=== PATIENT | male | born 1985 | race Caucasian/White ===

== ENCOUNTER 2023-01-04 13:08 | Outpatient (RCR) | payer BC, SELFPAY ==
[2022-05-04 21:02] LABS: Basophils Absolute Auto 0.04 K/uL (0.00-0.30); Basophils Percent Auto 0.7 % (0.0-3.0); Eosinophils Absolute Auto 0.15 K/uL (0.00-0.50); Eosinophils Percent Auto 2.5 % (0.0-7.0); Hemoglobin* 13.8 gm/dL (13.5-17.5); Immature Granulocytes Abs Auto 0.01 K/uL (0.00-0.30); Lymphocytes Absolute Auto 1.68 K/uL (0.90-2.90); Lymphocytes Percent Auto 27.8 % (20-44); Mean Corpuscular HGB Conc 34 gm/dL (32-36); Mean Corpuscular Hemoglobin 32 pg (26-34); Mean Corpuscular Volume 95 fL (80-100); Monocytes Percent Auto 4.8 % (0.0-11.0); Neutrophils Absolute Auto 3.87 K/uL (1.7-7.0); Platelet Count* 190 K/uL (140-440); RDW Coefficient of Variation % 14.2 % (11.5-15.5); Red Blood Count 4.33 m/uL (4.30-5.90); White Blood Count* 6.04 K/uL (4.50-11.00)
[2022-05-04 21:08] LABS: Slide Review Reflex No
[2022-05-10 22:06] LABS: Albumin* 4.7 g/dL (3.3-5.0); Chloride* 101 mmol/L (96-114); Potassium* 3.7 mmol/L (3.6-5.1); Sodium* 136 mmol/L (135-149)
[2022-05-10 22:08] LABS: Aspartate Amino Transferase* 24 U/L (12-35); Bilirubin Total* 0.9 mg/dL (0.1-1.5); Carbon Dioxide* 24 mmol/L (20-32); Estimated Glomerular Filt Rate 101 ml/min
[2022-05-10 22:09] LABS: Alanine Aminotransferase* 19 U/L (4-50); Alkaline Phosphatase* 57 U/L (40-150); Blood Urea Nitrogen* 19 mg/dL (5-24); Calcium* 9.2 mg/dL (8.4-10.6); Glucose* 130 mg/dL (60-115); Total Protein* 7.3 g/dL (6.0-8.3)
[2022-05-13 08:14] LABS: BCRABL1 Intl Scale (Percent) 0.0229 %
--- NOTE | 2022-07-18 14:45 | ONC.NURNOTE ---
Raul did not order his sprycel in time and has taken his last dose today his prescription has no refills RX faxed to [facility] in [place] and she signed and faxed in new RX today Patient was called and he said [facility] has called and scheduled delivery for tomorrow
[2022-08-11 13:14] LABS: Basophils Absolute Auto 0.02 K/uL (0.00-0.30); Basophils Percent Auto 0.4 % (0.0-3.0); Eosinophils Absolute Auto 0.25 K/uL (0.00-0.50); Eosinophils Percent Auto 4.9 % (0.0-7.0); Hematocrit 43.3 % (37.0-53.0); Hemoglobin* 14.5 gm/dL (13.5-17.5); Immature Granulocytes Abs Auto 0.01 K/uL (0.00-0.30); Immature Granulocytes Pct Auto 0.2 %; Lymphocytes Absolute Auto 1.18 K/uL (0.90-2.90); Mean Corpuscular HGB Conc 34 gm/dL (32-36); Mean Corpuscular Hemoglobin 32 pg (26-34); Mean Corpuscular Volume 95 fL (80-100); Monocytes Percent Auto 5.4 % (0.0-11.0); Neutrophils Percent Auto 66.1 % (42.0-72.0); Platelet Count* 192 K/uL (140-440); RDW Coefficient of Variation % 14.1 % (11.5-15.5); Red Blood Count 4.57 m/uL (4.30-5.90); White Blood Count* 5.14 K/uL (4.50-11.00)
[2022-08-11 13:23] LABS: Albumin* 4.9 g/dL (3.3-5.0); Chloride* 102 mmol/L (96-114)
[2022-08-11 13:24] LABS: Potassium* 4.6 mmol/L (3.6-5.1); Sodium* 139 mmol/L (135-149)
[2022-08-11 13:26] LABS: Alkaline Phosphatase* 42 U/L (40-150); Aspartate Amino Transferase* 25 U/L (12-35); Bilirubin Total* 1.4 mg/dL (0.1-1.5); Blood Urea Nitrogen* 20 mg/dL (5-24); Carbon Dioxide* 31 mmol/L (20-32); Creatinine* 0.9 mg/dL (0.5-1.5); Estimated Glomerular Filt Rate 114 ml/min; Total Protein* 7.2 g/dL (6.0-8.3)
[2022-08-11 13:27] LABS: Alanine Aminotransferase* 19 U/L (4-50); Calcium* 9.1 mg/dL (8.4-10.6); Glucose* 82 mg/dL (60-115)
[2022-08-11 13:38] LABS: Slide Review Reflex No
[2022-08-18 21:44] LABS: BCRABL1 Intl Scale (Percent) 0.0158 %
--- NOTE | 2022-08-21 13:43 | ONC.NURNOTE ---
Lab results noted and called to Raul with BCR/ABL results song writer checked with Raul about medication affordability Raul pays about $5000 for first refill and then has met deductible and does not have copay the rest of the year song writer suggested he check with [employer] copay card next appt Tuesday 08/28
--- NOTE | 2022-11-08 11:49 | ONC.NURNOTE ---
JW approved for continuation of Sprycel 11/06/22-11/06/23 [facility] Adelina ESCALERA # [employer] [id number] AG
[2023-01-04 14:13] LABS: Basophils Absolute Auto 0.04 K/uL (0.00-0.30); Basophils Percent Auto 0.6 % (0.0-3.0); Eosinophils Absolute Auto 0.22 K/uL (0.00-0.50); Eosinophils Percent Auto 3.2 % (0.0-7.0); Hematocrit 44.4 % (37.0-53.0); Hemoglobin* 14.7 gm/dL (13.5-17.5); Immature Granulocytes Abs Auto 0.02 K/uL (0.00-0.30); Immature Granulocytes Pct Auto 0.3 %; Lymphocytes Percent Auto 19.1 % (20-44); Mean Corpuscular HGB Conc 33 gm/dL (32-36); Mean Corpuscular Hemoglobin 32 pg (26-34); Mean Corpuscular Volume 96 fL (80-100); Monocytes Percent Auto 5.6 % (0.0-11.0); Neutrophils Absolute Auto 4.92 K/uL (1.7-7.0); Neutrophils Percent Auto 71.2 % (42.0-72.0); Platelet Count* 231 K/uL (140-440); RDW Coefficient of Variation % 14.3 % (11.5-15.5); Red Blood Count 4.64 m/uL (4.30-5.90); White Blood Count* 6.91 K/uL (4.50-11.00)
[2023-01-04 14:16] LABS: Albumin* 4.5 g/dL (3.3-5.0); Chloride* 103 mmol/L (96-114); Potassium* 4.5 mmol/L (3.6-5.1); Sodium* 140 mmol/L (135-149)
[2023-01-04 14:18] LABS: Estimated Glomerular Filt Rate 101 ml/min
[2023-01-04 14:19] LABS: Alanine Aminotransferase* 24 U/L (4-50); Alkaline Phosphatase* 46 U/L (40-150); Aspartate Amino Transferase* 23 U/L (12-35); Bilirubin Total* 0.8 mg/dL (0.1-1.5); Blood Urea Nitrogen* 24 mg/dL (5-24); Calcium* 9.3 mg/dL (8.4-10.6); Carbon Dioxide* 30 mmol/L (20-32); Glucose* 93 mg/dL (60-115); Total Protein* 7.2 g/dL (6.0-8.3)
[2023-01-04 14:20] LABS: Slide Review Reflex No
--- NOTE | 2023-01-09 11:42 | ONC.NURNOTE ---
Lab results noted with in patients parameters left message on voice mail to call for results appt with provider on Sunday
[2023-01-12 01:40] LABS: QuantBCR-ABL Major p210 Source Not Provided; QuantBCR-ABLMajor p210 IS % 0.1234 %
== END 2023-12-07 08:34 | disposition home or self-care (01) ==
LOC: LAB 13:08
PROVIDERS: Clinical Nurse Specialist; PCP Family Medicine; Visit Provider Nurse Practitioner Family
DX: C92.10 Chronic myeloid leukemia, BCR/ABL-positive, not having achieved remission (principal)
CPT/HCPCS: 36415; 80053; 81206; 85025

== ENCOUNTER 2023-01-19 16:02 | Outpatient (CLI) | payer BC, SELFPAY | END 2023-01-19 16:03 | disposition home or self-care (01) | LOC: NFLDREF 01-26 12:43 | PROVIDERS: PCP Physician Assistant Medical; Referring Provider Physician Assistant Medical; Visit Provider Physician Assistant Medical | DX: C92.10 Chronic myeloid leukemia, BCR/ABL-positive, not having achieved remission (principal) | CPT/HCPCS: 81206 ==

== ENCOUNTER 2023-03-15 15:00 | Outpatient (RCR) | payer BC, SELFPAY ==
--- NOTE | 2022-08-28 15:32 | ONC.NURNOTE ---
Patient called office today to cancel his appointment. His daughter is in the hospital with influenza. He will call office once is daughter is discharged to reschedule.
--- NOTE | 2022-11-30 13:39 | ONC.NURNOTE ---
Phone call to patient- due for labs and then follow up with Dr Galicia on 12/14/22 Patient states he was not aware of the December appt and will be out of town- traveling Due for labs- plans to get in the next few weeks and next follow up scheduled for January- per patient request reports no concerns or changes continues on Fredy
--- NOTE | 2023-01-29 10:32 | ONC.NURNOTE ---
BCR/ABL results noted and emailed to Dr Mcdonough for follow up
--- NOTE | 2023-06-27 15:34 | ONC.NURNOTE ---
BCR/ABL results called to Raul next appt moved to Jul with Dr Snyder per office request Raul will be moving to [place] the end of July- and will need copies of his records when he comes in July Raul also looking for hematology recommendation if we have one for the [facility]
== END 2023-07-14 23:59 | disposition home or self-care (01) ==
LOC: CCIC 15:00
PROVIDERS: PCP Internal Medicine Hematology & Oncology; Referring Provider Internal Medicine Hematology & Oncology; Visit Provider Internal Medicine Hematology & Oncology
DX: C92.10 Chronic myeloid leukemia, BCR/ABL-positive, not having achieved remission (principal)
CPT/HCPCS: 99212; 99213; 99214; 99215

== ENCOUNTER 2023-06-15 09:00 | Outpatient (CLI) | payer BC, SELFPAY ==
--- OUTSIDE RECORDS SUMMARY | 2023-06-16 13:03 | XMS_ITS | Continuity of Care Document ---
Author Name Unknown Organization [facility] Address [address] [address] [place] [address] Phone Care Team Providers Care Field Court Researcher Name Role Phone Hammad Pleitez MD Unavailable Unavailable Allergies, Adverse Reactions, Alerts Substance Reaction Status Criticality No Known Allergies Active No Inform ation Medications Medication Instructions Dosage Effective Dates (start - stop) Status Comments Gleevec 400 mg tablet take 1.5 tablet by oral route every day with meal(s) and a large glass of water 600 MG - Active multivitamin tablet take 1 tablet by oral route every day with food - Active FISH OIL (unknown strength) Not Available - Active PROBIOTIC (unknown strength) Not Available - Active Rectiv 0.4 % (w/w) ointment apply 1 pea sized amount by rectal route 2 times every day - Active Procedures Procedure Date Sigmoidoscopy Flex; Dx (jun Pr 17 Offic/outpt E[facility] [place] Directives Directive Yes / No Effective Date File Name No Information Encounters Encounter Description Practice Location Reason(s) For Visit Diagnoses Date Provider Providers Copied on Encounter [facility], [address] [address], [place], [place], [id number], [place] tel:[phone] [facility] Anal fissureAnal fissure, unspecified Maik Cueva. [address], [place], [place], [id number], [place]. tel:[phone] Referring Provider: Brendan Bustillo, [address], [place], [address]. tel:[phone] Offic/outpt [facility] [place] [place] [facility], [address] [address], [place], [place], [id number], [place] tel:[phone] [facility] GI Symptoms or Concerns (chief complaint) Rectal bleedingCML (chronic myeloid leukemia)Elev ated blood-pressur e reading, w/o diagnosis of htn Morris Lozoya. [address], [place], [place], [id number], [place]. tel:[phone] Referring Provider: Brendan Bustillo, [address] [place], [address]. tel:[phone] Family History Family Member Type Diagnosis Age At Onset Father Problem (finding) Alive and well Son Problem (finding) Alive and well Mother Problem (finding) Thyroid disorder Mother Problem (finding) malignant neop lasm of breast in first degree relative Sister Problem (finding) Alive and well Brother Problem (finding) Alive and well Payers Payer name Insurance type Covered libertarian ID Authoriza tion(s) [employer] Of [facility] [id number] Social History Type Description Quantity Date Captured Comments Alcohol Use Details Unknown Caffeine Use Details Unknown Tobacco Use Status No Information Smoking Status Never smoker Sex Male Vital Signs Date / Time: Height Weight BMI Pulse Rate Blood Pressure Temperature Respiratory Rate Body Surface Area Head Circumference Head Circ. Percentile Wt./[place]. Percentile BMI percentile Pulse Ox Inhaled Ox 2:21 PM 74.00 in 84.810 kg (187.00 lbs) 24.0 0 kg/m eter (2) 73 /min 126/79 mm[Hg] 0.00 F 18 /min 100 % Chief Complaint And Reason For Visit No Information Reason For Referral Reason For Referral No Information History Of Present Illness Encounter Date Complaint History Of Prese nt Illness GI Symptoms or Concerns The kandis ent is a very pleasant 32-year-old man with past medical history significant for CML on chronic Gleevec therapy who presents for evaluation of rectal bleeding and painful bowel movements. He was diagnosed approximately a year ago with CML due to easy bruising. However, even before that he noticed intermittent bright red blood with bowel movements. This comes and goes, is around the stool and on the toilet paper, but not had mixed with stool. He does not have significant constipation, nor does he strain to have bowel movements. It did not seem to be exacerbated when he started Gleevec. Over the past month or two, he has noted a sharp pain with passage of stool at his rectum. He also has significant pruritus in the perianal area. He has not noticed any skin changes there. He has tried hydrocortisone cream, [id number], but this brings only partial relief. He has not previously had colonoscopy or flexible sigmoidoscopy. He has had no inadvertent weight loss, nausea, Functional Status Date Functional Assessmen t No Information Instructions Date Instruction Additional Infor mation No Information Assessments Type Assessment Date No Information Patient Care Teams Name Effective Dates (start - stop) Status Members No Information
== END 2023-06-15 09:01 | disposition home or self-care (01) ==
LOC: NFLDREF 06-16 13:01
PROVIDERS: PCP Internal Medicine Hematology & Oncology; Referring Provider Internal Medicine Hematology & Oncology; Visit Provider Internal Medicine Hematology & Oncology
DX: C92.10 Chronic myeloid leukemia, BCR/ABL-positive, not having achieved remission (principal)
CPT/HCPCS: 80053; 81206

== ENCOUNTER 2023-07-30 15:08 | Outpatient (RCR) | payer BC, SELFPAY ==
--- NOTE | 2023-10-16 16:00 | ONC.NURNOTE ---
Referral request: transfer of care Received call today from Mr. New to request referral for oncology care to Dr. Brian Coppola of [facility], fax # [phone], phone # [phone]. Per Payroll Processor, Mr. Art has all of his most recent labs and records, however I have requested release of information in case more information is requested from Dr. Coppola's team. Per Payroll Processor, will discuss with Dr. Maty Snyder for consideration of refill of medication for Mr. Art to continue with his treatment until he can be seen in [place] by new oncologist.
--- NOTE | 2023-11-30 14:13 | ONC.NURNOTE ---
Raul has an appt with exchange administrator in [place] in December PA for Sprycel on 11/06/23 Patient has refills at [facility] but can not fill until PA completed PA submitted via covermymeds today- Raul aware new address is [address] [address] [address] seen [address] Dr Brian Farah [address] [address]
--- NOTE | 2023-12-03 11:18 | ONC.NURNOTE ---
Received letter from [facility] stating that patient's Sprycel will be covered for next year. LMOM letting patient know this, as he has transfered his care to [facility].
== END 2024-01-26 23:59 | disposition home or self-care (01) ==
LOC: CCIC 15:08
PROVIDERS: Referring Provider Internal Medicine Hematology & Oncology; Visit Provider Internal Medicine Hematology & Oncology
DX: C92.10 Chronic myeloid leukemia, BCR/ABL-positive, not having achieved remission (principal)
CPT/HCPCS: 99212; 99213; 99214